=== PATIENT | female | born 1975 | race Two or more races ===

== ENCOUNTER 2019-03-17 22:35 | Inpatient (IN) | payer OTHER ==
--- NOTE | 2019-03-17 23:13 | PDOC ---
Attending Attestation - Resident Resident Name: Daysi Cifuentes - ED Attending Attestation I have performed the following: I have examined & evaluated the patient, The case was reviewed & discussed with the resident, I agree w/resident's findings & plan - HPI HPI: 03/18/19 02:23 see resident hpi 03/18/19 02:25 - Physicial Exam PE: 03/18/19 02:25 agree with resident exam - Medical Decision Making 03/18/19 02:25 43-year-old female with right upper quadrant abdominal pain Ultrasound shows a thickened gallbladder wall with cholelithiasis Patient has no elevated white blood cell counts, chemistries are pending due to lab issues Due to equivocal ultrasound, persistent pain patient will be admitted for surgical evaluation in the morning
[2019-03-17] MEDS ORDERED: FAMOTIDINE 20 MG/50 ML IVPB 20 MG/50 ML MG IVPB ONE ×2 (23:26→23:57)
[2019-03-17] MEDS ORDERED: SODIUM CHLORIDE 1,000 ML IV STA (23:26)
[2019-03-17] MEDS ORDERED: ACETAMINOPHEN 1000 MG/100 ML VIAL (NON FORMULARY) IVPB ONE (23:26)
[2019-03-17] MEDS ORDERED: ONDANSETRON 4 MG/2 ML VIAL IVPB ONE (23:26)
[2019-03-17] MEDS ORDERED: ACETAMINOPHEN INJECTION 100 ML IVPB ONE (23:56)
[2019-03-17] MEDS ORDERED: ONDANSETRON 4 MG/2 ML VIAL ONE (23:57)
[2019-03-17 23:58] LABS: BASO % 0.5 % (0-2.0); EOS % 0.2 % (0-4.5); HEMATOCRIT 38.5 % (32.4-45.2); HEMOGLOBIN 13.3 GM/dL (10.7-15.3); LYMPH % 14.7 % (8-40); MCH 31.8 pg (25.7-33.7); MCHC 34.4 g/dl (32.0-36.0); MEAN CELL VOLUME 92.4 fl (80-96); MEAN PLT VOLUME 8.8 fl (7.5-11.1); MONO % 4.8 % (3.8-10.2); NEUT % 79.8 % (42.8-82.8); PLATELET COUNT 250 K/MM3 (134-434); RBC 4.17 M/mm3 (3.60-5.2); RDW 11.9 % (11.6-15.6); WHITE BLOOD COUNT 8.5 K/mm3 (4.0-10.0)
--- NOTE | 2019-03-18 00:35 | PDOC ---
History of Present Illness - General Chief Complaint: Pain, Acute Stated Complaint: ABD PAIN Time Seen by Provider: 03/17/19 23:00 History Source: Patient Exam Limitations: No Limitations - History of Present Illness Initial Comments: 03/18/19 00:32 43y F with PMH of GERD presenting to ED with complaints of epigastric abdominal pain that began 4pm yesterday evening but worsened at around 11pm. Patient states pain is sharp, radiates to the back, associated with nausea. She states that she vomited one time today after she ate soup. Denies diarrhea, constipation, fevers, chills, headache, chest pain, sob. Has not had pain like this before. PMD: Ella PMH: see hpi PSH: Socia: denies Allergies: nkda Past History - Past Medical History Allergies/Adverse Reactions: Allergies Allergy/AdvReac Type Severity Reaction Status Date / Time No Known Allergies Allergy Verified 03/17/19 22:39 COPD: No GI Disorders: Yes (acid reflux) - Psycho Social/Smoking Cessation Hx Smoking History: Never smoked Hx Alcohol Use: No Drug/Substance Use Hx: No Review of Systems - Review of Systems Constitutional: No: Symptoms Reported HEENTM: No: Symptoms Reported Respiratory: No: Symptoms reported Cardiac (ROS): No: Symptoms Reported ABD/GI: Yes: See HPI : No: Symptoms Reported Musculoskeletal: No: Symptoms Reported Integumentary: No: Symptoms Reported *Physical Exam - Vital Signs Last Vital Signs Temp Pulse Resp BP Pulse Ox 98.2 F 73 19 132/87 99 03/17/19 22:36 03/17/19 22:36 03/17/19 22:36 03/17/19 22:36 03/17/19 22:36 - Physical Exam General Appearance: Yes: Nourished, Appropriately Dressed. No: Apparent Distress HEENT: positive: EOMI, JANET. negative: Scleral Icterus (R), Scleral Icterus (L) Neck: positive: Trachea midline, Supple. negative: Lymphadenopathy (R), Lymphadenopathy (L) Respiratory/Chest: positive: Lungs Clear, Normal Breath Sounds. negative: Crackles, Rales, Rhonchi, Stridor, Wheezing Cardiovascular: positive: Regular Rhythm, Regular Rate, S1, S2. negative: Edema , JVD, Murmur Vascular Pulses: Dorsalis-Pedis (R): 2+, Doralis-Pedis (L): 2+ Gastrointestinal/Abdominal: positive: Normal Bowel Sounds, Soft, Tenderness (RUQ , epigastric) Musculoskeletal: negative: CVA Tenderness Extremity: positive: Normal Capillary Refill. negative: Swelling, Calf Tenderness, Erythema Integumentary: positive: Normal Color, Dry, Warm Neurologic: positive: precise winder II-XII NML intact, Fully Oriented, Alert, Normal Mood/ Affect, Normal Response, Motor Strength 09/17 ED Treatment Course - LABORATORY CBC & Chemistry Diagram: 03/17/19 23:48 03/17/19 23:48 - ADDITIONAL ORDERS Additional order review: 03/17/19 23:48 RBC 4.17 MCV 92.4 MCHC 34.4 RDW 11.9 MPV 8.8 Neutrophils % 79.8 Lymphocytes % 14.7 Monocytes % 4.8 Eosinophils % 0.2 Basophils % 0.5 - RADIOLOGY Radiology Studies Ordered: Category Date Time Status ABDOMEN US -LIMITED [US] Stat Ultrasound 03/18/19 23:25 Ordered - Medications Given in the ED: ED Medications Discontinued Medications Generic Name Dose Route Start Last Admin Trade Name Freq PRN Reason Stop Dose Admin Acetaminophen 1,000 mg 03/17/19 23:26 03/18/19 00:10 Ofirmev Injection - IVPB 03/17/19 23:27 1,000 mg ONCE ONE Administration Famotidine/Sodium Chloride 20 mg in 50 mls @ 100 mls/hr 03/17/19 23:26 00:10 Pepcid 20 Mg Premixed Ivpb - IVPB 03/17/19 23:55 100 mls/hr ONCE ONE Administration Sodium Chloride 1,000 mls @ 1,000 mls/hr 03/17/19 23:26 03/18/19 00:10 Normal Saline - IV 03/18/19 00:25 1,000 mls/hr ASDIR STA Administration Ondansetron HCl 4 mg 03/17/19 23:26 03/18/19 00:10 Zofran Injection IVPB 03/17/19 23:27 4 mg ONCE ONE Administration Medical Decision Making - Medical Decision Making 03/18/19 03:37 43y F presenting with RUQ/epigastric abdominal pain. vitals wnl ddx includes but not limited to pancreatitis, cholecystitis, cholelithiasis, aaa , colitis, nephrolithiasis will order labs including lipase, trop, lact, ua, ucx, upreg iv fluids, ofirmev, pepcid, RUQ sono ekg: nsr at [address] lsegment elevation <1mm in V2. no depressions. trop pending. No chest pain 03/18/19 03:39 Cholelithiasis and thickened gallbladder wall, 5 mm. No acute cholecystitis. Unremarkable liver, right kidney and visualized aorta and pancreas. Normal common duct diameter, 4 mm. no white count, ua negative for infection. chem sent out: elevated LFTs. with US being equivocal and RUQ Tenderness, will admit pt for cholecystitis. accepted by hospitalist team 03/18/19 04:39 Discharge - Discharge Information Problems reviewed: Yes Clinical Impression/Diagnosis: Cholelithiasis Qualifiers: Cholelithiasis location: gallbladder Cholecystitis presence: with cholecystitis Cholecystitis acuity: unspecified acuity Biliary obstruction: without biliary obstruction Qualified Code(s): K80.10 - Calculus of gallbladder with chronic cholecystitis without obstruction Condition: Good - Admission Yes - Follow up/Referral - Patient Discharge Instructions - Post Discharge Activity
[2019-03-18 02:17] LABS: URINE APPEARANCE CLEAR; URINE BILIRUBIN NEGATIVE (NEGATIVE); URINE COLOR YELLOW; URINE GLUCOSE (UA) NEGATIVE (NEGATIVE); URINE KETONE NEGATIVE (NEGATIVE); URINE LEUK ESTERASE NEGATIVE (NEGATIVE); URINE NITRITE NEGATIVE (NEGATIVE); URINE PROTEIN NEGATIVE (NEGATIVE)
[2019-03-18] MEDS ORDERED: PANTOPRAZOLE 20 MG TABLET (FP) PO ONE (03:56)
[2019-03-18] MEDS ORDERED: PANTOPRAZOLE SODIUM 40 MG VIAL IVPUSH ONE (03:58)
--- NOTE | 2019-03-18 04:19 | HP ---
CHIEF COMPLAINT: RUQ pain PCP: Dr. Barroso- ([phone]) HISTORY OF PRESENT ILLNESS: 43 y/o pmh of GERD, presents w/ RUQ of 1 day duration that started this morning after breakfast and since then has continuously worsened, accompanied also by nbnb vomiting x1 in the ED. Pt rates the pain a 7/10 and reports that moving and breathing worsens it, while famotidine and zofran given in the ER alleviates it. Pt reports that she has been having on and off pain in her stomach for 1 month now, but it was not until this morning that this pain worsened and persisted. Pt also states that she was supposed to have her Gallbladder removed several years ago, but never followed up for it. Currently, pt is stable and denies f/c/d, sob, numbness or tingling, dizziness, melena, hematochezia. ER course was notable for: (1)Famotidine 20mg and Zofran 4mg (2)US- cholelithiasis evident, no acute cholecystitis, thickened GB 5mm, normal common duct 4mm (3)EKG- NSR Recent Travel: denies PAST MEDICAL HISTORY: GERD PAST SURGICAL HISTORY: Abdominoplasty, Social History: Smoking:denies Alcohol:denies Drugs: denies Allergies No Known Allergies Allergy (Verified 03/17/19 22:39) HOME MEDICATIONS: REVIEW OF SYSTEMS CONSTITUTIONAL: Absent: fever, chills, diaphoresis, generalized weakness, HEENT: Absent: visual changes CARDIOVASCULAR: Absent: chest pain, syncope, palpitations, irregular heart rate, lightheadedness , RESPIRATORY: Absent: cough, shortness of breath, dyspnea with exertion, wheezing, GASTROINTESTINAL: Admits: abdominal pain, nausea, vomiting, Absent: abdominal distension, diarrhea, constipation, melena, hematochezia GENITOURINARY: Absent: hematuria, MUSCULOSKELETAL: Admit: back pain, Absent: neck pain PHYSICAL EXAMINATION Vital Signs - 24 hr 03/17/19 03/18/19 22:36 03:31 Temperature 98.2 F Pulse Rate 73 Pulse Rate [ 70 Left Brachial] Respiratory 19 16 Rate Blood Pressure 132/87 Blood Pressure 129/80 [Left Arm] O2 Sat by Pulse 99 99 Oximetry (%) GENERAL: Awake, alert, and fully oriented, in no acute distress. EYES: Pupils equal, round and reactive to light, extraocular movements intact EARS, NOSE, THROAT: Moist mucous membranes. NECK: supple without lymphadenopathy, JVD, or masses. LUNGS: Breath sounds equal, clear to auscultation bilaterally. No wheezes, and no crackles. HEART: Regular rate and rhythm, normal S1 and S2 without murmur, rub or gallop. ABDOMEN: +Tenderness in all four quadrants but worse on the right side. Leonard sign positive, Rovsings neg, not distended, normoactive bowel sounds, +guarding , no rebound UPPER EXTREMITIES: 2+ pulses, warm, well-perfused. No peripheral edema. LOWER EXTREMITIES: 2+ pulses, warm, well-perfused. No peripheral edema. PSYCHIATRIC: Cooperative. Good eye contact. Appropriate mood and affect. Laboratory Results - last 24 hr CBC,CMP WBC 8.5 K/mm3 (4.0-10.0) 03/17/19 23:48 RBC 4.17 M/mm3 (3.60-5.2) 03/17/19 23:48 Hgb 13.3 GM/dL (10.7-15.3) 03/17/19 23:48 Hct 38.5 % (32.4-45.2) 03/17/19 23:48 MCV 92.4 fl (80-96) 03/17/19 23:48 MCH 31.8 pg (25.7-33.7) 03/17/19 23:48 MCHC 34.4 g/dl (32.0-36.0) 03/17/19 23:48 RDW 11.9 % (11.6-15.6) 03/17/19 23:48 Plt Count 250 K/MM3 (134-434) 03/17/19 23:48 MPV 8.8 fl (7.5-11.1) 03/17/19 23:48 Absolute Neuts (auto) 6.8 K/mm3 (1.5-8.0) 03/17/19 23:48 Neutrophils % 79.8 % (42.8-82.8) 03/17/19 23:48 Lymphocytes % 14.7 % (8-40) 03/17/19 23:48 Monocytes % 4.8 % (3.8-10.2) 03/17/19 23:48 Eosinophils % 0.2 % (0-4.5) 03/17/19 23:48 Basophils % 0.5 % (0-2.0) 03/17/19 23:48 Nucleated RBC % 0 % (0-0) 03/17/19 23:48 Sodium 139 mmol/L (136-145) 03/17/19 23:48 Potassium 4.1 mmol/L (3.5-5.1) 03/17/19 23:48 Chloride 107 mmol/L (98-107) 03/17/19 23:48 Carbon Dioxide 21 mmol/L (21-32) 03/17/19 23:48 Anion Gap No Result Required. 03/17/19 23:48 BUN 7.0 mg/dL (7-18) 03/17/19 23:48 Creatinine 0.7 mg/dL (0.55-1.3) 03/17/19 23:48 Est GFR (CKD-EPI)AfAm 124.73 03/17/19 23:48 Est GFR (CKD-EPI)NonAf 107.62 03/17/19 23:48 Random Glucose 121 mg/dL (74-106) H 03/17/19 23:48 Lactic Acid 0.9 mmol/L (0.4-2.0) 03/17/19 23:48 Calcium 9.6 mg/dL (8.5-10.1) 03/17/19 23:48 Total Bilirubin 1.0 mg/dL (0.2-1) 03/17/19 23:48 AST 119 U/L (15-37) H 03/17/19 23:48 ALT 67 U/L (13-61) H 03/17/19 23:48 Alkaline Phosphatase 77 U/L (45-117) 03/17/19 23:48 Total Protein 7.7 g/dl (6.4-8.2) 03/17/19 23:48 Albumin 4.0 g/dl (3.4-5.0) 03/17/19 23:48 Lipase 139 U/L (73-393) 03/17/19 23:48 ASSESSMENT/PLAN: 43 y/o pmh of GERD, presents w/ RUQ of 1 day duration that started this morning after breakfast accompanied also by nbnb vomiting x1 likely 2/2 to biliary colic #Biliary colic 2/2 to cholelithiasis confirmed on U/S Consult GI in the am possible surgery or procedure required Keep NPO overnight except for PO meds IVF- NS at 83 Protonix 40 monitor vitals Pain control r/p CBC, CMP #GERD cont home meds- omeprazole protonix 40 for now #DVT ppx SCDs b/l FEN IVF NS at 83 monitor lytes NPO Dispo: f/u labs, pain control, consult GI Visit type - Emergency Visit Emergency Visit: Yes ED Registration Date: 03/18/19 Care time: The patient presented to the Emergency Department on the above date and was hospitalized for further evaluation of their emergent condition. - New Patient This patient is new to me today: Yes Date on this admission: 03/21/19 - Critical Care Critical Care patient: No ATTENDING PHYSICIAN STATEMENT I saw and evaluated the patient. I reviewed the resident's note and discussed the case with the resident. I agree with the resident's findings and plan as documented. SUBJECTIVE: OBJECTIVE: ASSESSMENT AND PLAN:
--- NOTE | 2019-03-18 05:05 | PN ---
Teaching Attending Note Name of Resident: Rob Chambers ATTENDING PHYSICIAN STATEMENT I saw and evaluated the patient. I reviewed the resident's note and discussed the case with the resident. I agree with the resident's findings and plan as documented. SUBJECTIVE: 43y F with PMH of GERD c/o epigastric abdominal pain With radiation to her back that began 4pm yesterday evening And worsened shortly after prompting her to seek medical attention.Patient did not have any vomiting or fevers. OBJECTIVE: Last Vital Signs Temp Pulse Resp BP Pulse Ox 98.2 F 70 16 129/80 99 03/17/19 22:36 03/18/19 03:31 03/18/19 03:31 03/18/19 03:31 03/18/19 03:31 GENERAL: Well developed, well nourished. Awake and alert. No acute distress. HEENT: Normocephalic, atraumatic. PERRLA, EOMI. No conjunctival pallor. Sclera are non- icteric. Moist mucous membranes. Oropharynx is clear. NECK: Supple. Full ROM. No JVD. Carotid pulses 2+ and symmetric, without bruits. No thyromegaly. No lymphadenopathy. CARDIOVASCULAR: Regular rate and rhythm. No murmurs, rubs, or gallops. Distal pulses are 2+ and symmetric. PULMONARY: No evidence of respiratory distress. Lungs clear to auscultation bilaterally. No wheezing, rales or rhonchi. ABDOMINAL: Soft.Right upper quadrant and epigastric tenderness to palpation Non-distended. No rebound or guarding. No organomegaly. Normoactive bowel sounds. MUSCULOSKELETAL Normal range of motion at all joints. No bony deformities or tenderness. No CVA tenderness. EXTREMITIES: No cyanosis. No clubbing. No edema. No calf tenderness. SKIN: Warm and dry. Normal capillary refill. No rashes. No jaundice. PSYCHIATRIC: Cooperative. Good eye contact. Appropriate mood and affect. Abnormal Lab Results 03/17/19 23:48 Random Glucose 121 H AST 119 H ALT 67 H ekg reviewed abd u/s reviewed ASSESSMENT AND PLAN: 43-year-old woman with epigastric pain likely biliary colic. Ultrasound of abdomen is equivocal however cholelithiasis and thickened gallbladder wall was present on imaging suggesting possible cholecystitis. Mild transaminitis present. Admit to [facility] Gentle IV fluid hydration Morphine as needed for pain control Zofran IV as needed for nausea PT and PTT Type and screen Observe off antibiotics Surgery consult N.p.o. SCDs for DVT prophylaxis
[2019-03-18] MEDS ORDERED: MORPHINE SULFATE 2 MG/ML VIAL IVPUSH PRN (05:08)
[2019-03-18 05:14] VITALS: BMI 29.2
[2019-03-18] MEDS: SODIUM CHLORIDE 1,000 ML IV SCH ×2 (05:59→20:07)
[2019-03-18 07:29] LABS: ALBUMIN 3.8 g/dl (3.4-5.0); BLOOD UREA NITROGEN 6.8 mg/dL (7-18); CREATININE 0.8 mg/dL (0.55-1.3); POTASSIUM 3.9 mmol/L (3.5-5.1); TOT PROT 7.4 g/dl (6.4-8.2)
[2019-03-18 07:37] LABS: BASO % 0.4 % (0-2.0); EOS % 1.3 % (0-4.5); HEMATOCRIT 35.6 % (32.4-45.2); HEMOGLOBIN 11.9 GM/dL (10.7-15.3); LYMPH % 32.6 % (8-40); MCH 30.5 pg (25.7-33.7); MCHC 33.4 g/dl (32.0-36.0); MEAN CELL VOLUME 91.5 fl (80-96); NEUT % 58.7 % (42.8-82.8); PLATELET COUNT 210 K/MM3 (134-434); WHITE BLOOD COUNT 7.5 K/mm3 (4.0-10.0)
[2019-03-18 07:57] LABS: ALBUMIN 3.2 g/dl (3.4-5.0); ALK PHOS 80 U/L (45-117); ANION GAP 5 MMOL/L (8-16); BILIRUBIN,TOTAL 0.4 mg/dL (0.2-1); BLOOD UREA NITROGEN 5.6 mg/dL (7-18); CALCIUM 8.2 mg/dL (8.5-10.1); CHLORIDE 110 mmol/L (98-107); CO2 25 mmol/L (21-32); CREATININE 0.8 mg/dL (0.55-1.3); GLUCOSE,RANDOM 78 mg/dL (74-106); POTASSIUM 3.9 mmol/L (3.5-5.1); SGOT/AST 69 U/L (15-37); SGPT/ALT 71 U/L (13-61); SODIUM 141 mmol/L (136-145); TOT PROT 6.5 g/dl (6.4-8.2)
[2019-03-18] MEDS: PANTOPRAZOLE SODIUM 40 MG VIAL IVPUSH SCH (09:00)
[2019-03-18 09:31] LABS: INR 1.13 (0.83-1.09); PROTHROMBIN TIME (PATIENT) 13.4 SEC (9.7-13.0)
[2019-03-18] MEDS ORDERED: ACETAMINOPHEN 1000 MG/100 ML VIAL (NON FORMULARY) IVPB PRN ×2 (11:51→12:03)
--- NOTE | 2019-03-18 12:03 | PN ---
Physical Exam: SUBJECTIVE: Patient seen and examined. reports intermittent abdominal pain. wants to try liquid diet. OBJECTIVE: Patient is a 43 year old female with a past medical history of GERD. She present to the ED with right upper quadrant pain for one day that began after breakfast and has continuously worsened. She also reports non bloody emesis in the ED. Abdominal pain has been intermittent for months. Has been told in the past that her gallbladder was an issue and she should have surgical follow up for possible surgery. On exam, she reports no nausea or vomiting. RUQ intermittent better since being npo, still with some intermittent ruq pain. She will try clears, but then will be NPO at midnight for OR with Dr. Iniguez. imaging: u/s: gall stones with gall bladder thickening Vital Signs Period Temp Pulse Resp BP Sys/Orozco Pulse Ox Last 24 Hr 98.2 F-98.5 F 60-73 14-19 120-132/64-87 98-99 GENERAL: awake, alert, in no acute distress. HEENT:Normocephalic, atraumatic. PERRLA, EOMI. No conjunctival pallor. Sclera are non-icteric. NECK: Supple. CARDIOVASCULAR: Regular rate and rhythm. No murmurs, rubs, or gallops. Distal pulses are 2+ and symmetric. PULMONARY: No evidence of respiratory distress. ABDOMINAL: ruq epigastric pain and tenderness, non distended, soft. no guarding MUSCULOSKELETAL: ambulatory, no issues. EXTREMITIES: No cyanosis. No clubbing. No edema. No calf tenderness. SKIN: Warm and dry. Normal capillary refill. No rashes. No jaundice. PSYCHIATRIC: Cooperative. Good eye contact. Appropriate mood and affect. Laboratory Results - last 24 hr 03/17/19 03/17/19 03/17/19 23:48 23:48 23:48 WBC 8.5 RBC 4.17 Hgb 13.3 Hct 38.5 MCV 92.4 MCH 31.8 MCHC 34.4 RDW 11.9 Plt Count 250 MPV 8.8 Absolute Neuts (auto) 6.8 Neutrophils % 79.8 Lymphocytes % 14.7 Monocytes % 4.8 Eosinophils % 0.2 Basophils % 0.5 Nucleated RBC % 0 PT with INR INR Sodium 138 Potassium 3.9 Chloride 107 Carbon Dioxide 24 Anion Gap 7 L BUN 6.8 L Creatinine 0.8 Est GFR (CKD-EPI)AfAm 106.13 Est GFR (CKD-EPI)NonAf 91.57 Random Glucose 116 H Lactic Acid Calcium 9.0 Total Bilirubin 1.0 AST 114 H ALT 73 H Alkaline Phosphatase 83 Total Protein 7.4 Albumin 3.8 Lipase 158 Urine Color Urine Appearance Urine pH Ur Specific [place] Urine Protein Urine Glucose (UA) Urine Ketones Urine Blood Urine Nitrite Urine Bilirubin Urine Urobilinogen Ur Leukocyte Esterase Urine HCG, Qual Blood Type Antibody Screen 03/17/19 03/18/19 03/18/19 23:48 01:54 EST 01:57 EST WBC RBC Hgb Hct MCV MCH MCHC RDW Plt Count MPV Absolute Neuts (auto) Neutrophils % Lymphocytes % Monocytes % Eosinophils % Basophils % Nucleated RBC % PT with INR INR Sodium Potassium Chloride Carbon Dioxide Anion Gap BUN Creatinine Est GFR (CKD-EPI)AfAm Est GFR (CKD-EPI)NonAf Random Glucose Lactic Acid 0.9 Calcium Total Bilirubin AST ALT Alkaline Phosphatase Total Protein Albumin Lipase Urine Color Yellow Urine Appearance Clear Urine pH 7.0 Ur Specific [place] 1.023 Urine Protein Negative Urine Glucose (UA) Negative Urine Ketones Negative Urine Blood Negative Urine Nitrite Negative Urine Bilirubin Negative Urine Urobilinogen 1.0 Ur Leukocyte Esterase Negative Urine HCG, Qual Negative Blood Type Antibody Screen 03/18/19 03/18/19 03/18/19 06:30 06:30 08:50 WBC 7.5 RBC 3.90 Hgb 11.9 Hct 35.6 MCV 91.5 MCH 30.5 MCHC 33.4 RDW 12.0 Plt Count 210 MPV 9.0 Absolute Neuts (auto) 4.4 Neutrophils % 58.7 D Lymphocytes % 32.6 D Monocytes % 7.0 Eosinophils % 1.3 D Basophils % 0.4 Nucleated RBC % 0 PT with INR 13.40 H INR 1.13 H Sodium 141 Potassium 3.9 Chloride 110 H Carbon Dioxide 25 Anion Gap 5 L BUN 5.6 L Creatinine 0.8 Est GFR (CKD-EPI)AfAm 106.13 Est GFR (CKD-EPI)NonAf 91.57 Random Glucose 78 Lactic Acid Calcium 8.2 L Total Bilirubin 0.4 AST 69 H ALT 71 H Alkaline Phosphatase 80 Total Protein 6.5 Albumin 3.2 L Lipase Urine Color Urine Appearance Urine pH Ur Specific [place] Urine Protein Urine Glucose (UA) Urine Ketones Urine Blood Urine Nitrite Urine Bilirubin Urine Urobilinogen Ur Leukocyte Esterase Urine HCG, Qual Blood Type Antibody Screen 03/18/19 03/18/19 08:50 11:05 WBC RBC Hgb Hct MCV MCH MCHC RDW Plt Count MPV Absolute Neuts (auto) Neutrophils % Lymphocytes % Monocytes % Eosinophils % Basophils % Nucleated RBC % PT with INR INR Sodium Potassium Chloride Carbon Dioxide Anion Gap BUN Creatinine Est GFR (CKD-EPI)AfAm Est GFR (CKD-EPI)NonAf Random Glucose Lactic Acid Calcium Total Bilirubin AST ALT Alkaline Phosphatase Total Protein Albumin Lipase Urine Color Urine Appearance Urine pH Ur Specific [place] Urine Protein Urine Glucose (UA) Urine Ketones Urine Blood Urine Nitrite Urine Bilirubin Urine Urobilinogen Ur Leukocyte Esterase Urine HCG, Qual Blood Type O POSITIVE O POSITIVE Antibody Screen Negative Active Medications Generic Name Dose Route Start Last Admin Trade Name Freq PRN Reason Stop Dose Admin Acetaminophen 1,000 mg 03/18/19 11:51 Ofirmev Injection - IVPB Q6H PRN PAIN LEVEL 6-10 Sodium Chloride 1,000 mls @ 83 mls/hr 03/18/19 04:00 03/18/19 05:59 Normal Saline - IV 83 mls/hr ASDIR YAMIL Administration Morphine Sulfate 2 mg 03/18/19 05:08 Morphine Sulfate IVPUSH Q4H PRN PAIN LEVEL 6-10 Pantoprazole Sodium 40 mg 03/18/19 10:00 03/18/19 09:00 Protonix Iv IVPUSH 40 mg DAILY YAMIL Administration ASSESSMENT/PLAN: Problem List - Problems (1) Cholelithiasis Assessment/Plan: pain intermittent, improving. for surgical evaluation. npo at midnight clears as tolerated ivf anti emetics pain management incentive spriometer early ambulation post surgery monitor vitals, labs, pain Code(s): K80.20 - CALCULUS OF GALLBLADDER W/O CHOLECYSTITIS W/O OBSTRUCTION Qualifiers: Cholelithiasis location: gallbladder Cholecystitis presence: with cholecystitis Cholecystitis acuity: unspecified acuity Biliary obstruction: without biliary obstruction Qualified Code(s): K80.10 - Calculus of gallbladder with chronic cholecystitis without obstruction (2) Prophylactic measure Assessment/Plan: fen ivf monitor electrolytes clears then npo at midight full code Code(s): Z29.9 - ENCOUNTER FOR PROPHYLACTIC MEASURES, UNSPECIFIED Visit type - Emergency Visit Emergency Visit: Yes ED Registration Date: 03/18/19 Care time: The patient presented to the Emergency Department on the above date and was hospitalized for further evaluation of their emergent condition. - New Patient This patient is new to me today: Yes Date on this admission: 03/18/19 - Critical Care Critical Care patient: No - Discharge Referral Referred to [facility] Med P.C.: No
[2019-03-19 07:19] LABS: BASO % 0.5 % (0-2.0); EOS % 1.4 % (0-4.5); HEMATOCRIT 36.5 % (32.4-45.2); LYMPH % 44.2 % (8-40); MCH 30.5 pg (25.7-33.7); MCHC 32.9 g/dl (32.0-36.0); MEAN CELL VOLUME 92.7 fl (80-96); MEAN PLT VOLUME 8.6 fl (7.5-11.1); MONO % 7.1 % (3.8-10.2); NEUT % 46.8 % (42.8-82.8); PLATELET COUNT 210 K/MM3 (134-434); RBC 3.93 M/mm3 (3.60-5.2); WHITE BLOOD COUNT 5.3 K/mm3 (4.0-10.0)
[2019-03-19] MEDS ORDERED: PROPOFOL 20 ML ONE ×2 (07:37)
[2019-03-19] MEDS ORDERED: fentaNYL CITRATE 250 MCG/5 ML VIAL ONE (07:38)
[2019-03-19] MEDS ORDERED: EPHEDRINE SULFATE/0.9% NACL/PF 50 MG/10 ML SYRINGE NR ONE ×2 (07:39)
[2019-03-19] MEDS ORDERED: SUCCINYLCHOLINE CHLORIDE 200 MG/10 ML SYRINGE ONE (07:39)
[2019-03-19] MEDS ORDERED: ROCURONIUM BROMIDE 50 MG/5 ML SYRINGE ONE (07:39)
[2019-03-19] MEDS ORDERED: MIDAZOLAM HCL 2 MG/2 ML SINGLE DOSE VIAL ONE (07:40)
[2019-03-19 07:47] LABS: ALBUMIN 3.2 g/dl (3.4-5.0); BILIRUBIN,TOTAL 0.8 mg/dL (0.2-1); BLOOD UREA NITROGEN 4.4 mg/dL (7-18); CALCIUM 8.3 mg/dL (8.5-10.1); CREATININE 0.8 mg/dL (0.55-1.3); INR 1.17 (0.83-1.09); MAGNESIUM 1.9 mg/dL (1.8-2.4); POTASSIUM 3.9 mmol/L (3.5-5.1); PROTHROMBIN TIME (PATIENT) 13.8 SEC (9.7-13.0); TOT PROT 6.4 g/dl (6.4-8.2)
[2019-03-19] MEDS ORDERED: BUPIVACAINE HCL/PF 0.5% (5 MG/ML) 30 ML VIAL IJ ONE (07:56)
[2019-03-19] MEDS ORDERED: ONDANSETRON 4 MG/2 ML VIAL IVPUSH PRN ×2 (08:01→10:27)
[2019-03-19] MEDS ORDERED: HYDROmorphone HCl 2 MG/ML VIAL IVPUSH PRN ×2 (08:02→08:03)
[2019-03-19] MEDS ORDERED: LACTATED RINGERS SOLUTION 1,000 ML IV SCH ×2 (08:15→10:27)
--- NOTE | 2019-03-19 08:25 | CONSULT ---
- Consultation REQUESTING PROVIDER: Narciso EDWARDS CONSULT REQUEST: We have been asked to surgically evaluate this patient for ( specify). PCP:Angelic Álvarez NP HISTORY OF PRESENT ILLNESS: FABIAN who is a 43 y/o female w/known cholelithiasis who presented w/post prandial RUQ abdo pain w/radiation to her back and right shoulder and n/v; it would not stop and she came to the ED for evaluation; she denies dark urine/light stools or any other GI//KILN TENDER c/o, PMHx: GERD PSHx: abdominoplasty and C-S Home Medications Medication Instructions Recorded Nexium DAILY 03/18/19 Nexium PRN 03/18/19 Prilosec PRN 03/18/19 Allergies Allergy/AdvReac Type Severity Reaction Status Date / Time No Known Allergies Allergy Verified 03/17/19 22:39 REVIEW OF SYSTEMS: CONSTITUTIONAL: Absent: fever, chills, diaphoresis, generalized weakness, malaise, loss of appetite, weight change CARDIOVASCULAR: Absent: chest pain, syncope, palpitations, irregular heart rate, lightheadedness , peripheral edema RESPIRATORY: Absent: cough, shortness of breath, dyspnea with exertion, wheezing, stridor, hemoptysis GASTROINTESTINAL: Present: abdominal pain, abdominal distension, nausea, vomiting, Absent: diarrhea, constipation, melena, hematochezia GENITOURINARY: Absent: dysuria, frequency, urgency, hesitancy, hematuria, flank pain, genital pain MUSCULOSKELETAL: Absent: myalgia, arthralgia, joint swelling, back pain, neck pain SKIN: Absent: rash, itching, pallor HEMATOLOGIC/IMMUNOLOGIC: Absent: easy bleeding, easy bruising, lymphadenopathy NEUROLOGIC: Absent: headache, focal weakness, paresthesias, dizziness, unsteady gait, seizure, mental status changes, bladder or bowel incontinence PSYCHIATRIC: Absent: anxiety, depression, suicidal or homicidal ideation, hallucinations. PHYSICAL EXAM: GENERAL: Awake, alert, and fully oriented, in no acute distress. HEAD: Normal with no signs of trauma. EYES: , sclera anicteric, conjunctiva clear. NECK: Normal ROM, supple without lymphadenopathy, JVD, or masses. ABDOMEN: Soft, tender RUQ, not distended, normoactive bowel sounds, no guarding , no rebound, no masses. No organomegaly. Healed abdominoplasty scar. NO hernias. MUSCULOSKELETAL: Normal ROM at all joints. No bony deformities or tenderness. No CVA tenderness. UPPER EXTREMITIES: 2+ pulses, warm, well-perfused. No cyanosis. Cap refill <2 seconds. No peripheral edema. LOWER EXTREMITIES: 2+ pulses, warm, well-perfused. No calf tenderness. No peripheral edema. NEUROLOGICAL: Normal speech, gait not observed. PSYCH: Cooperative. Good eye contact. Appropriate mood and affect. SKIN: Warm, dry, normal turgor, no rashes or lesions noted. Vital Signs Temperature 98.0 F 03/19/19 07:48 Pulse Rate 75 03/19/19 07:48 Respiratory Rate 18 03/19/19 07:48 Blood Pressure 123/61 03/19/19 07:48 O2 Sat by Pulse Oximetry (%) 98 03/18/19 21:00 Lab Results WBC 5.3 K/mm3 (4.0-10.0) 03/19/19 06:42 RBC 3.93 M/mm3 (3.60-5.2) 03/19/19 06:42 Hgb 12.0 GM/dL (10.7-15.3) 03/19/19 06:42 Hct 36.5 % (32.4-45.2) 03/19/19 06:42 MCV 92.7 fl (80-96) 03/19/19 06:42 MCHC 32.9 g/dl (32.0-36.0) 03/19/19 06:42 RDW 12.0 % (11.6-15.6) 03/19/19 06:42 Plt Count 210 K/MM3 (134-434) 03/19/19 06:42 Sodium 138 mmol/L (136-145) 03/19/19 06:42 Potassium 3.9 mmol/L (3.5-5.1) 03/19/19 06:42 Chloride 109 mmol/L (98-107) H 03/19/19 06:42 Carbon Dioxide 24 mmol/L (21-32) 03/19/19 06:42 Anion Gap 6 MMOL/L (8-16) L 03/19/19 06:42 BUN 4.4 mg/dL (7-18) L 03/19/19 06:42 Creatinine 0.8 mg/dL (0.55-1.3) 03/19/19 06:42 Random Glucose 77 mg/dL (74-106) 03/19/19 06:42 Calcium 8.3 mg/dL (8.5-10.1) L 03/19/19 06:42 Blood Type O POSITIVE 03/18/19 11:05 Antibody Screen Negative 03/18/19 08:50 INR 1.17 (0.83-1.09) H 03/19/19 06:42 Imaging w/u reviewed IMP: acute cholecystitis; symptomatic biliary colic PLAN: Lap mere possible open; r/b/t/a's d/w the patient in Monegasque and Marshallese and informed consent obtained. Sushil Iniguez MD FACS
[2019-03-19] MEDS ORDERED: ceFAZolin SODIUM 1 GM VIAL IVPB ONE (08:35)
[2019-03-19] MEDS ORDERED: NEOSTIGMINE METHYLSULFATE 0.5 MG/ML - 10 ML MDV ONE (09:04)
[2019-03-19] MEDS ORDERED: GLYCOPYRROLATE 0.2 MG/1 ML VIAL ONE (09:04)
[2019-03-19] MEDS ORDERED: BUPIVACAINE HCL/PF 0.5% (5MG/ML) 10 ML VIAL NR ONE (09:30)
[2019-03-19] MEDS ORDERED: KETOROLAC TROMETHAMINE 30 MG/1 ML VIAL ONE (09:36)
--- NOTE | 2019-03-19 10:01 | OP ---
Operative Note - Note: Operative Date: 03/19/19 Pre-Operative Diagnosis: acute cholecystitis/cholelithiasis Operation: laparoscopic cholecystectomy Findings: acute cholecystitis/cholelithiasis Post-Operative Diagnosis: Same as Pre-op Surgeon: Sushil Iniguez Pharmacist Critical Care: Kori Lopez Anesthesiologist/BLACK LEATHER TRIMMER: Ophelia Florence Anesthesia: General Specimens Removed: gallbladder and contents Estimated Blood Loss (mls): 20 Drains & Tubes with Location: none Operative Report Dictated: Yes
[2019-03-19] MEDS ORDERED: ACETAMINOPHEN 1000 MG/100 ML VIAL (NON FORMULARY) IVPB ONE (10:14)
--- NOTE | 2019-03-19 10:17 | EKG ---
Test Reason : Blood Pressure : / mmHG Vent. Rate : 072 BPM Atrial Rate : 072 BPM P-R Int : 176 ms QRS Dur : 070 ms QT Int : 412 ms P-R-T Axes : -24 006 012 degrees QTc Int : 451 ms NORMAL SINUS RHYTHM LOW VOLTAGE QRS BORDERLINE ECG NO PREVIOUS ECGS AVAILABLE Confirmed by STEPHANY PARIS MD ([id number]) on 03/19/2019 10:17:14 AM Referred By: Confirmed By:STEPHANY PARIS MD
[2019-03-19] MEDS ORDERED: oxyCODONE HCL 5 MG TABLET PO PRN ×2 (10:23→10:24)
[2019-03-19] MEDS ORDERED: SODIUM CHLORIDE 1,000 ML IV SCH (10:27)
[2019-03-19] MEDS ORDERED: MORPHINE SULFATE 2 MG/ML VIAL IVPUSH PRN (10:27)
--- NOTE | 2019-03-19 10:28 | SURG ---
Surgery Molecular Biology Director Note Molecular Biology Director: Kori Lopez PA-C Date of Service: 03/19/19 Diagnosis: acute cholecystitis/cholelithiasis Procedure: laparoscopic cholecystectomy I was present for the entirety of the operative procedure. For further detail, please refer to operative report. Visit type - Case Type Case Type: ED Admission - Emergency Emergency Visit: Yes ED Registration Date: 03/18/19 Care time: The patient presented to the Emergency Department on the above date and was hospitalized for further evaluation of their emergent condition. - New patient This patient is new to me today: Yes Date on this admission: 03/19/19
--- NOTE | 2019-03-19 15:29 | OP ---
DATE OF OPERATION: 03/19/2019 PREOPERATIVE DIAGNOSIS: Cholelithiasis and acute cholecystitis. POSTOPERATIVE DIAGNOSIS: Cholelithiasis and acute cholecystitis. PROCEDURE: Laparoscopic cholecystectomy. SURGEON: Sushil Iniguez MD RESEARCH KENNEL SUPERVISOR: Kori Lopez PA-C ANESTHESIA: General. OPERATIVE FINDINGS: Acute cholecystitis and cholelithiasis. The rest of the findings were unremarkable. DESCRIPTION OF PROCEDURE: The patient was placed on the operating room table in supine position. After the induction of general anesthesia, the patient's abdomen was prepped with ChloraPrep and draped in sterile fashion. Time-out was taken and then pneumoperitoneum established above the umbilicus using a Veress needle. Once 15 mm of intra-abdominal pressure was obtained, a 5-mm port was placed at the umbilicus. Additional lateral 5-mm ports and a subxiphoid 12-mm port were placed and laparoscopy carried out, and the previously noted findings were observed. The gallbladder was placed on cephalad and lateral traction, and dissection was begun at the neck of the gallbladder where the peritoneum was opened medially and laterally using blunt and sharp dissection and electrocautery. Dissection continued in the triangle of Calot where the cystic duct was identified coursing from the neck of the gallbladder distally to the common bile duct. It was dissected proximally and distally for length. Similarly, the artery was similarly identified and dissected. A critical view of safety was taken, and then the cystic duct divided proximally and distally using Endo Shayne after it was clipped twice proximally and distally with large hemoclips. The artery was similarly clipped and divided. Hemostasis was checked for and noted to be good and then the gallbladder was removed from the liver bed in a retrograde fashion using electrocautery. Prior to removal from the edge of the liver, hemostasis was again verified and then the gallbladder removed from the edge of the liver, placed in an EndoCatch, and brought out through the subxiphoid port. Pneumoperitoneum was reestablished, hemostasis verified again, and then the 5-mm lateral and subxiphoid ports were removed under laparoscopic vision without evidence of bleeding from the port sites. The umbilical port was removed and the pneumoperitoneum evacuated. All port sites were infiltrated with 0.5% Marcaine and the skin edges closed with 4-0 Biosyn in a subcuticular and continuous fashion. Steri-Strips and Band-Aid dressings were placed and the procedure terminated at this point and the patient aroused from general anesthesia and transferred to the post anesthesia care unit in stable condition awake and alert. ESTIMATED BLOOD LOSS: 20 mL. REPLACEMENTS: Crystalloid. DRAINS: None. SPECIMENS: Gallbladder and contents to pathology. I, Sushil Iniguez, was physically present in the operating room from the time the patient was placed on the operating room table until she was transferred to the post anesthesia care unit in my company. MD JESSIE Olmedo/[id number] MTDD
[2019-03-19] MEDS ORDERED: ACETAMINOPHEN 325 MG TABLET (FP) PO PRN (17:00)
--- NOTE | 2019-03-19 17:08 | PN ---
Physical Exam: SUBJECTIVE: Patient seen and examined at the bedside. s/p surgery today. denies pain, only sore. awake and alert. belly soft. sipping on tea. OBJECTIVE: Patient is a 43 year old female with a past medical history of GERD. She present to the ED with right upper quadrant pain and is no POD #0 of acute mere with Dr. Iniguez. imaging: u/s: gall stones with gall bladder thickening Vital Signs Period Temp Pulse Resp BP Sys/Orozco Pulse Ox Last 24 Hr 97.8 F-98.4 F 63-80 14-20 106-130/60-85 98-100 GENERAL: awake, alert, in no acute distress. HEENT:Normocephalic, atraumatic. PERRLA, EOMI. No conjunctival pallor. Sclera are non-icteric. NECK: Supple. CARDIOVASCULAR: Regular rate and rhythm. No murmurs, rubs, or gallops. Distal pulses are 2+ and symmetric. PULMONARY: No evidence of respiratory distress. ABDOMINAL: s/p lap mere. surgical dressings intact. belly soft, non distended. tolerating sips of MUSCULOSKELETAL: ambulatory, no issues. EXTREMITIES: No cyanosis. No clubbing. No edema. No calf tenderness. SKIN: Warm and dry. Normal capillary refill. No rashes. No jaundice. PSYCHIATRIC: Cooperative. Good eye contact. Appropriate mood and affect. Laboratory Results - last 24 hr 03/19/19 03/19/19 03/19/19 06:42 06:42 06:42 WBC 5.3 RBC 3.93 Hgb 12.0 Hct 36.5 MCV 92.7 MCH 30.5 MCHC 32.9 RDW 12.0 Plt Count 210 MPV 8.6 Absolute Neuts (auto) 2.5 Neutrophils % 46.8 D Lymphocytes % 44.2 H D Monocytes % 7.1 Eosinophils % 1.4 Basophils % 0.5 Nucleated RBC % 0 PT with INR 13.80 H INR 1.17 H Sodium 138 Potassium 3.9 Chloride 109 H Carbon Dioxide 24 Anion Gap 6 L BUN 4.4 L Creatinine 0.8 Est GFR (CKD-EPI)AfAm 106.13 Est GFR (CKD-EPI)NonAf 91.57 Random Glucose 77 Calcium 8.3 L Magnesium 1.9 Total Bilirubin 0.8 AST 24 ALT 48 Alkaline Phosphatase 62 Total Protein 6.4 Albumin 3.2 L Active Medications Generic Name Dose Route Start Last Admin Trade Name Freq PRN Reason Stop Dose Admin Acetaminophen 650 mg 03/19/19 17:00 Tylenol - PO Q6H PRN PAIN LEVEL 1-5 Sodium Chloride 1,000 mls @ 83 mls/hr 03/19/19 10:27 Normal Saline - IV ASDIR YAMIL Morphine Sulfate 2 mg 03/19/19 10:27 Morphine Sulfate IVPUSH Q4H PRN PAIN LEVEL 6-10 Ondansetron HCl 4 mg 03/19/19 10:27 Zofran Injection IVPUSH Q6H PRN NAUSEA AND/OR VOMITING Oxycodone HCl 5 mg 03/19/19 10:23 Roxicodone - PO Q6H PRN PAIN LEVEL 1-5 Oxycodone HCl 10 mg 03/19/19 10:24 Roxicodone - PO Q6H PRN PAIN LEVEL 6-10 Pantoprazole Sodium 40 mg 03/20/19 10:00 Protonix Iv IVPUSH DAILY YAMIL ASSESSMENT/PLAN: Problem List - Problems (1) Cholelithiasis Assessment/Plan: POD #0 s/p lap mere pain management early ambulation bowel regimen clears, then increase as tolerating surgical follow up incentive spirometer discharge in a.m. once cleared by surgery Code(s): K80.20 - CALCULUS OF GALLBLADDER W/O CHOLECYSTITIS W/O OBSTRUCTION Qualifiers: Cholelithiasis location: gallbladder Cholecystitis presence: with cholecystitis Cholecystitis acuity: unspecified acuity Biliary obstruction: without biliary obstruction Qualified Code(s): K80.10 - Calculus of gallbladder with chronic cholecystitis without obstruction (2) Prophylactic measure Assessment/Plan: fen clears and advance scds full code Code(s): Z29.9 - ENCOUNTER FOR PROPHYLACTIC MEASURES, UNSPECIFIED Visit type - Emergency Visit Emergency Visit: Yes ED Registration Date: 03/18/19 Care time: The patient presented to the Emergency Department on the above date and was hospitalized for further evaluation of their emergent condition. - New Patient This patient is new to me today: No - Critical Care Critical Care patient: No - Discharge Referral Referred to [facility] Med P.[facility].: No
[2019-03-19] MEDS: PANTOPRAZOLE SODIUM 40 MG VIAL IVPUSH SCH (17:30)
[2019-03-19] MEDS: DOCUSATE SODIUM 100 MG CAPSULE (FP) PO SCH (21:09)
--- NOTE | 2019-03-20 07:36 | PN ---
Progress Note (short form) - Note Progress Note: GENERAL SURGERY POD #1 Alert. C/o mild incisional tenderness. Adequate pain control with meds ordered. Shes been oob and ambulating unassisted. Voiding spontaneously. Denies n/v/f/c, CP, palpitations, SOB or BUTLER. AVSS. Afebrile. Gen: alert. nad. Abd: all surgical ports c/d/i. no hematoma LE: soft, supple, nt. SCDs bilat. Problem List - Problems (1) S/P laparoscopic cholecystectomy Assessment/Plan: POD #1 Doing well. Recovering as expected. Pain management prn Reg diet. No further surgical intervention and is cleared for dc home today. On behalf of Dr. Iniguez, thank you for the opportunity to participate in your patient's care. Code(s): Z90.49 - ACQUIRED ABSENCE OF OTHER SPECIFIED PARTS OF DIGESTIVE TRACT (2) Cholelithiasis Code(s): K80.20 - CALCULUS OF GALLBLADDER W/O CHOLECYSTITIS W/O OBSTRUCTION Qualifiers: Cholelithiasis location: gallbladder Cholecystitis presence: with cholecystitis Cholecystitis acuity: unspecified acuity Biliary obstruction: without biliary obstruction Qualified Code(s): K80.10 - Calculus of gallbladder with chronic cholecystitis without obstruction
--- NOTE | 2019-03-20 08:22 | DS ---
"Physical Exam: SUBJECTIVE: Patient seen and examined OBJECTIVE: Vital Signs Period Temp Pulse Resp BP Sys/Orozco Pulse Ox Last 24 Hr 97.8 F-98.2 F 63-80 14-20 106-130/60-85 98-100 PHYSICAL EXAM GENERAL: awake, alert, in no acute distress. HEENT:Normocephalic, atraumatic. PERRLA, EOMI. No conjunctival pallor. Sclera are non-icteric. NECK: Supple. CARDIOVASCULAR: Regular rate and rhythm. No murmurs, rubs, or gallops. Distal pulses are 2+ and symmetric. PULMONARY: No evidence of respiratory distress. ABDOMINAL: s/p lap mere. surgical dressings intact. belly soft, non distended. tolerating sips of MUSCULOSKELETAL: ambulatory, no issues. EXTREMITIES: No cyanosis. No clubbing. No edema. No calf tenderness. SKIN: Warm and dry. Normal capillary refill. No rashes. No jaundice. PSYCHIATRIC: Cooperative. Good eye contact. Appropriate mood and affect. HOSPITAL COURSE: Date of Admission:03/18/19 Date of Discharge: 03/20/19 Problem List (1) Cholelithiasis Assessment/Plan: POD #1 s/p lap mere surgical follow up with Dr Iniguez cleared by surgery for discharge home with f/u care Code(s): K80.20 - CALCULUS OF GALLBLADDER W/O CHOLECYSTITIS W/O OBSTRUCTION Qualifiers: Cholelithiasis location: gallbladder Cholecystitis presence: with cholecystitis Cholecystitis acuity: unspecified acuity Biliary obstruction: without biliary obstruction Qualified Code(s): K80.10 - Calculus of gallbladder with chronic cholecystitis without obstruction (2) Prophylactic measure Resume low fat low cholesterol diet Code(s): Z29.9 - ENCOUNTER FOR PROPHYLACTIC MEASURES, UNSPECIFIED Minutes to complete discharge: 40 Discharge Summary Problems reviewed: Yes Reason For Visit: CHOLECYSTITIS Current Active Problems Cholelithiasis (Acute) Prophylactic measure (Acute) S/P laparoscopic cholecystectomy (Acute) Hospital Course: Patient is a 43 year old female with a past medical history of GERD. She present to the ED with right upper quadrant pain and is no POD #0 of acute mere with Dr. Iniguez. imaging: u/s: gall stones with gall bladder thickening HOSPITAL COURSE: Date of Admission:03/18/19 Date of Discharge: 03/20/19 Problem List (1) Cholelithiasis Assessment/Plan: POD #1 s/p lap mere surgical follow up with Dr Iniguez cleared by surgery for discharge home with f/u care Code(s): K80.20 - CALCULUS OF GALLBLADDER W/O CHOLECYSTITIS W/O OBSTRUCTION Qualifiers: Cholelithiasis location: gallbladder Cholecystitis presence: with cholecystitis Cholecystitis acuity: unspecified acuity Biliary obstruction: without biliary obstruction Qualified Code(s): K80.10 - Calculus of gallbladder with chronic cholecystitis without obstruction (2) Prophylactic measure Resume low fat low cholesterol diet Code(s): Z29.9 - ENCOUNTER FOR PROPHYLACTIC MEASURES, UNSPECIFIED - Instructions Diet, Activity, Other Instructions: Dr. Iniguez Discharge Instructions Dear YOUSIF CHAVEZ, Post Operative Instructions Physical activity Resume your normal everyday activity as tolerated no heavy lifting or exercise until seen by your surgeon. You may walk unlimited amounts of and climb stairs. You may resume driving the car when you feel safe and comfortable behind the wheel. Wound care If you have a bandage, leave it on, and keep dry for 48 - 72 hours. After that time discard the outer bandage. If there are tapes on the skin under the outer bandage, leave them in place. They will peel off in the next 7 to 10 days. Do Not peel them off. You may shower 2 days after surgery. If there are tapes present on the skin, they can get wet. Diet There are no dietary restrictions. Eat healthy, high-fiber foods. Drink 6 to 8 glasses of liquid each day. This will assist in keeping your bowels are regular. Pain management You may take Tylenol or acetaminophen or Ibuprofen (for example, Motrin, Advil etc.) Any pain prescription medication ordered should be taken as prescribed for moderate to severe pain. Call Dr. Iniguez for any of the following: Severe pain not relieved by medication Fever of 101 or higher Excessive bleeding or drainage on dressing Inability to urinate Call the office at [phone] for a post operative appointment in 7 - 10 days. This report was requested by: Kori Lopez | Reference #: [id number] Disposition: HOME - Home Medications Comprehensive Discharge Medication List: Ambulatory Orders Nexium DAILY 03/18/19 Nexium PRN 03/18/19 Oxycodone HCl/Acetaminophen [Percocet 5-325 mg Tablet] 1 - 2 tab PO Q6H PRN #20 tab MDD 8 03/19/19 Acetaminophen [Tylenol .Regular Strength -] 650 mg PO Q6H PRN tablet 03/20/19 Docusate Sodium [Colace -] 100 mg PO BID capsule 03/20/19 Prescription Drug Monitoring Program (I-STOP) results: I-STOP reviewed and no issues identified This patient is new to me today: Yes Date on this admission: 03/20/19 Emergency Visit: Yes ED Registration Date: 03/18/19 Care time: The patient presented to the Emergency Department on the above date and was hospitalized for further evaluation of their emergent condition. Critical Care patient: No - Discharge Referral Referred to [facility] Med P.C.: No"
[2019-03-20 09:42] VITALS: BP 126/76; PULSE 74; TEMP 98.8
[2019-03-20] MEDS ORDERED: PANTOPRAZOLE SODIUM 40 MG VIAL IVPUSH SCH (10:00)
[2019-03-20] MEDS ORDERED: PANTOPRAZOLE 40 MG TABLET (FP) PO SCH (10:00)
[2019-03-20] MEDS: DOCUSATE SODIUM 100 MG CAPSULE (FP) PO SCH (10:10)
--- NOTE | 2019-03-21 17:11 | PATH ---
Surgical Pathology Report Patient Name: YOUSIF CHAVEZ [facility]. Rec. #: [id number] /Age/Gender: 1975 (Age: 43) / F Account: [id number] Location: [address] [place] [address] Taken: 03/19/2019 Received: 03/19/2019 Reported: 03/21/2019 Physicians: Cliff Iniguez MD Specimen(s) Received GALLBLADDER Clinical History Cholecystitis Final Diagnosis GALLBLADDER, LAPAROSCOPIC CHOLECYSTECTOMY: CHRONIC CHOLECYSTITIS WITH CHOLELITHIASIS. Electronically Signed Dolores Dee M.D. Gross Description Received in formalin, labeled "gallbladder," is a 5.3 x 2.4 x 2.0 cm. gallbladder with a 0.2 cm. in length portion of cystic duct attached. The outer surface is isidro-laguerre with a focal defect and varies from smooth to shaggy. The lumen contains green, tenacious bile as well as 2 black, irregular choleliths measuring 0.6 and 1.5 cm in greatest dimension. The mucosa is dark green and velvety. The wall of the gallbladder averages 0.2 cm. in thickness. Cost Estimating Engineer sections are submitted in one cassette. 03/20/2019 saudi03/20/2019
== END 2019-03-20 13:29 | disposition home or self-care (01) | DRG 419 ==
LOC: JER 22:35 → JERBED 03-18 02:01 → J6S 03-18 04:15
PROVIDERS: ADMIT Internal Medicine; ATTEND Nurse Practitioner Acute Care
PROC: 0FT44ZZ Resection of Gallbladder, Percutaneous Endoscopic Approach (ICD-10-PCS; principal; 2019-03-19 08:00)
DX: K80.12 Calculus of gallbladder with acute and chronic cholecystitis without obstruction (principal); K21.9 Gastro-esophageal reflux disease without esophagitis; R10.11 Right upper quadrant pain; R74.0 Nonspecific elevation of levels of transaminase and lactic acid dehydrogenase [LDH]
CPT/HCPCS: 36415; 71045-TC-FY; 76705-TC; 80053; 81003; 83605; 83690; 83735; 84484; 84703; 85025; 85610; 86850; 86900; 86901; 87077; 87086; 88304-TC; 93005; 93010; 94760; 99283-25; J0131; J7030